=== PATIENT | female | born 1955 | race Caucasian/White ===

== ENCOUNTER 2017-10-05 17:44 | Emergency (ER) | payer MEDICAID ==
[2017-10-05 20:32] VITALS: BP 135/86
== END 2017-10-05 20:30 | disposition left against medical advice (07) ==
LOC: ED 17:44
DX: R07.89 Other chest pain (principal); R51 Headache; R11.2 Nausea with vomiting, unspecified; I10 Essential (primary) hypertension; E11.9 Type 2 diabetes mellitus without complications; Z79.84 Long term (current) use of oral hypoglycemic drugs
CPT/HCPCS: Q0162